=== PATIENT | female | born 1960 | race African-American/Black ===

== ENCOUNTER 2017-09-13 10:19 | Outpatient (CLI) | payer BC | END 2017-09-13 10:20 | disposition home or self-care (01) | LOC: BICMAMMO 10:19 | PROVIDERS: ATTEND Nurse Practitioner Family | DX: Z12.31 Encounter for screening mammogram for malignant neoplasm of breast (principal); Z00.00 Encounter for general adult medical examination without abnormal findings; R92.1 Mammographic calcification found on diagnostic imaging of breast | CPT/HCPCS: 77063; 77067 ==